=== PATIENT | female | born 1985 | race Caucasian/White ===

== ENCOUNTER 2017-08-17 12:47 | Emergency (ER) | payer SELFPAY ==
[2017-08-17 14:39] LABS: Absolute Lymphocytes (CBC) 2.3 K/uL (0.7-4.9); Absolute Monocytes 0.6 K/uL (0.1-1.3); Absolute Neutrophil 4.6 K/uL (1.8-8.0); Basophils % 0.6 % (0-1.3); Eosinophils % 2.4 % (0-4.4); Hematocrit 41.3 % (36.0-45.0); Lymphocytes % 29.5 % (15.3-44.8); MCV 87.7 fL (80-100); MPV 8.6 fL (7.6-11.3); Monocytes % 8.2 % (3.3-12.3); RBC Red Blood Cell Count 4.71 M/uL (3.86-4.86)
[2017-08-17 14:46] LABS: Potassium 3.7 mEq/L (3.6-5.0)
[2017-08-17 14:52] LABS: Albumin 4.3 g/dL (3.2-5.5); Bilirubin Direct 0.1 mg/dL (0-0.2); Bilirubin Total 0.6 mg/dL (0.3-1.2)
[2017-08-17] MEDS ORDERED: MEPERIDINE HCL 25 MG/0.5 ML ONE (15:59)
[2017-08-17] MEDS ORDERED: PROMETHAZINE 25 MG/ML VIAL ONE (15:59)
[2017-08-17 16:01] LABS: Urine Blood NEGATIVE (NEG); Urine Glucose NEGATIVE (NEG); Urine Protein 1+ (NEG); Urine Specific Gravity 1.025 (1.005-1.030)
--- NOTE | 2017-08-17 16:13 | RAD REPORT ---
EXAM DESCRIPTION: CT - Abdomen Pelvis W Contrast - 08/17/2017 3:53 pm CLINICAL HISTORY: Abdominal pain with vomiting and diarrhea for 3 days COMPARISON: 2007 TECHNIQUE: Computed axial tomography of the abdomen pelvis was obtained. 100 cc Isovue-300 was admin istered intravenously. Oral contrast was not requested which limits evaluation of bowel. All CT scans are performed using dose optimization technique as appropriate and may include automated exposure control or mA/KV adjustment according to patient size. FINDINGS: The liver, spleen, pancreas, adrenal and kidneys appear unremarkable. There is no evidence of diverticulitis. A thickened appendix is not seen. The gallbladder has been re moved Tubal occlusion coils are seen. A 2 centimeter irregularly shaped right ovarian cyst is present with a small amount of free fluid IMPRESSION: A 2 centimeter irregularly shaped right ovarian cyst is present with a small amount of f ree fluid likely has recently ruptured
--- NOTE | 2017-08-17 16:26 | EDPHYS ---
Physician Documentation [facility] Name: Anayeli Fernandez Age: 32 yrs Sex: Female : 1985 Arrival Date: 08/17/2017 Time: 12:50 Bed 5 Private MD: None, None ED Physician Andrea Land HPI: 08/17 15:53 This 32 yrs old Female presents to ER via Ambulatory with complaints of jr8 Vomiting/Diarrhea. 15:53 The patient presents to the emergency department with nausea, vomiting, diarrhea, jr8 abdominal pain, of the epigastric area. Onset: The symptoms/episode began/occurred gradually, 3 week(s) ago, and became worse and became persistent. Possible causes: unknown. The symptoms are aggravated by nothing. The symptoms are alleviated by nothing. Associated signs and symptoms: The patient has no apparent associated signs or symptoms. Severity of symptoms: At their worst the symptoms were moderate in the emergency department the symptoms are unchanged. The patient has not experienced similar symptoms in the past. The patient has not recently seen a physician. 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 - Social history:: Smoking status: Patient uses tobacco products, smokes one pack cigarettes per day. - Ebola Screening: : Patient denies travel to an Ebola-affected area in the 21 days before illness onset. ROS: 15:53 Eyes: Negative for injury, pain, redness, and discharge, ENT: Negative for injury, jr8 pain, and discharge, Neck: Negative for injury, pain, and swelling, Cardiovascular: Negative for chest pain, palpitations, and edema, Respiratory: Negative for shortness of breath, cough, wheezing, and pleuritic chest pain, Back: Negative for injury and pain, MS/Extremity: Negative for injury and deformity, Skin: Negative for injury, rash, and discoloration, Neuro: Negative for headache, weakness, numbness, tingling, and seizure. 15:53 Abdomen/GI: Positive for abdominal pain, nausea, vomiting, and diarrhea, Negative for abdominal cramps, abdominal distension, anorexia, dysphagia, hematemesis, black/tarry stool, rectal pain, rectal bleeding, bowel incontinence, flatulence. Exam: 15:53 Eyes: Pupils equal round and reactive to light, extra-ocular motions intact. Lids and jr8 lashes normal. Conjunctiva and sclera are non-icteric and not injected. Cornea within normal limits. Periorbital areas with no swelling, redness, or edema. ENT: Nares patent. No nasal discharge, no septal abnormalities noted. Tympanic membranes are normal and external auditory canals are clear. Oropharynx with no redness, swelling, or masses, exudates, or evidence of obstruction, uvula midline. Mucous membranes moist. Neck: Trachea midline, no thyromegaly or masses palpated, and no cervical lymphadenopathy. Supple, full range of motion without nuchal rigidity, or vertebral point tenderness. No Meningismus. Cardiovascular: Regular rate and rhythm with a normal S1 and S2. No gallops, murmurs, or rubs. Normal PMI, no JVD. No pulse deficits. Respiratory: Lungs have equal breath sounds bilaterally, clear to auscultation and percussion. No rales, rhonchi or wheezes noted. No increased work of breathing, no retractions or nasal flaring. Back: No spinal tenderness. No costovertebral tenderness. Full range of motion. Skin: Warm, dry with normal turgor. Normal color with no rashes, no lesions, and no evidence of cellulitis. MS/ Extremity: Pulses equal, no cyanosis. Neurovascular intact. Full, normal range of motion. Neuro: Awake and alert, GCS 15, oriented to person, place, time, and situation. Cranial nerves II-XII grossly intact. Motor strength 5/5 in all extremities. Sensory grossly intact. Cerebellar exam normal. Normal gait. 15:53 Abdomen/GI: Inspection: abdomen appears normal, Bowel sounds: active, all quadrants, Palpation: soft, in all quadrants, mild abdominal tenderness, in the epigastric area and left upper quadrant, mass, is not appreciated, rebound tenderness, is not appreciated, voluntary guarding, is not appreciated, involuntary guarding, is not appreciated, no appreciated organomegaly, Indicators: McBurney's point is not tender, Lima's sign is negative, Rovsing's sign is negative, Liver: no appreciated palpable abnormalities, tenderness, is not appreciated. Vital Signs: 13:33 BP 127 / 102; Pulse 80; Resp 18; Temp 98.3; Pulse Ox 97% on R/A; Weight 95.25 kg (R); aj1 Height 5 ft. 5 in. (165.10 cm) (R); Pain 6/10; 14:15 BP 139 / 98; Pulse 75; Resp 17; Pulse Ox 98% on R/A; tw2 15:10 BP 132 / 91; Pulse 71; Resp 17; Pulse Ox 98% on R/A; tw2 16:03 BP 155 / 110; Pulse 64; Resp 17; Pulse Ox 98% on R/A; tw2 16:34 BP 152 / 95; Pulse 90; Resp 18; Pulse Ox 99% on R/A; tw2 13:33 Body Mass Index 34.95 (95.25 kg, 165.10 cm) aj1 MDM: 14:13 Patient medically screened. jr8 16:23 Differential diagnosis: Nonspecific abd pain, gastritis, pancreatitis, diverticulitis, jr8 peptic ulcer, duodenal ulcer. Data reviewed: vital signs, nurses notes, lab test result(s), radiologic studies, CT scan, and as a result, I will discharge patient. Data interpreted: Pulse oximetry: on room air is 98 %. Interpretation: normal. Counseling: I had a detailed discussion with the patient and/or guardian regarding: the historical points, exam findings, and any diagnostic results supporting the discharge/admit diagnosis, lab results, radiology results, the need for outpatient follow up, a crap shooter, to return to the emergency department if symptoms worsen or persist or if there are any questions or concerns that arise at home. Special discussion: Based on the patient's Hx, exam, and Dx evaluation, there is no indication for emergent surgery or inpatient Tx. It is understood by the patient/guardian that if the Sx's persist or worsen they need to return immediately for re-evaluation. 08/17 14:13 Order name: Basic Metabolic Panel; Complete Time: 15:21 8 08/17 14:13 Order name: CBC with Diff; Complete Time: 15:21 8 08/17 14:13 Order name: Creatinine for Radiology; Complete Time: 15:21 08/17 14:13 Order name: Hepatic Function; Complete Time: 15:08/17 14:13 Order name: Lipase; Complete Time: 15: 08/17 14:32 Order name: Urine Dipstick--Ancillary (enter results); Complete Time: 16:03 5 08/17 14:13 Order name: Urine Test (obtain specimen); Complete Time: 15:04 08/17 14:13 Order name: IV Saline Lock; Complete Time: 14:26 08/17 14:13 Order name: Labs collected and sent; Complete Time: 14:26 08/17 14:13 Order name: Urine Dipstick-Ancillary (obtain specimen); Complete Time: 15: 08/17 15:21 Order name: CT Abd/Pelvis - W/Contrast; Complete Time: 16:23 Administered Medications: 16:00 Drug: Phenergan 12.5 mg Route: IVP; Site: right antecubital; tw2 16:27 Follow up: Response: No adverse reaction; Nausea is decreased tw2 16:03 Drug: Demerol 25 mg Route: IVP; Site: right antecubital; tw2 16:27 Follow up: Response: No adverse reaction; Pain is decreased tw2 Disposition: 17:10 Co-signature as Attending Physician, Andrea Land MD. rn Disposition: 08/17/17 16:25 Discharged to Home. Impression: Upper abdominal pain, unspecified. - Condition is Stable. - Discharge Instructions: Abdominal Pain, Adult, Gastritis, Adult. - Prescriptions for Zofran 4 mg Oral Tablet - take 1 tablet by ORAL route every 12 hours As needed; 20 tablet. - Medication Reconciliation Form, Thank You Letter, Antibiotic Education, Prescription Opioid Use, Work release form, Family Work Release form. - Follow up: Jaja Burgos MD; When: 2 - 3 days; Reason: Recheck today's complaints, Continuance of care, Re-evaluation by your physician. - Problem is new. - Symptoms have improved. - Notes: Advised to take 20mg of omeprazole, once in the morning and once at night Signatures: Dispatcher [employer] EDKS Yue Oliveira RN RN aj1 Andrea Land MD MD rn Roszak, Josh, PA PA jr8 Raya Murrieta, RN RN tw2 Corrections: (The following items were deleted from the chart) 16:35 16:25 08/17/2017 16:25 Discharged to Home. Impression: Upper abdominal pain, tw2 unspecified. Condition is Stable. Forms are Medication Reconciliation Form, Thank You Letter, Antibiotic Education, Prescription Opioid Use. Follow up: Jaja Burgos; When: 2 - 3 days; Reason: Recheck today's complaints, Continuance of care, Re-evaluation by your physician. Problem is new. Symptoms have improved. jr8
--- NOTE | 2017-08-17 16:26 | ER ---
Nurse's Notes [facility] Name: Anayeli Fernandez Age: 32 yrs Sex: Female : 1985 Arrival Date: 08/17/2017 Time: 12:50 Bed 5 Private MD: None, None Diagnosis: Upper abdominal pain, unspecified Presentation: 08/17 13:29 Presenting complaint: Patient states: "I've been throwing up and having diarrhea for aj1 the past 3 days." Reports epigastric pain,chills. denies fever. Transition of care: patient was not received from another setting of care. Onset of symptoms was August 14, 2017. Risk Assessment: Do you want to hurt yourself or someone else? Patient reports no desire to harm self or others. Initial Sepsis Screen: Does the patient meet any 2 criteria? No. Patient's initial sepsis screen is negative. Does the patient have a suspected source of infection? No. Patient's initial sepsis screen is negative. Care prior to arrival: None. 13:29 Method Of Arrival: Ambulatory aj1 13:29 Acuity: AZALEA 3 aj1 Triage Assessment: 13:33 General: Appears in no apparent distress. uncomfortable, Behavior is calm, cooperative, aj1 appropriate for age. Pain: Complains of pain in epigastric area Pain does not radiate. Pain currently is 6 out of 10 on a pain scale. at worst was 10 out of 10 on a pain scale. Quality of pain is described as "like someone was stomping on my stomach" Pain began 2-3 days ago. Is continuous, Alleviated by nothing. Aggravated by nothing. GI: Reports diarrhea, nausea, vomiting. 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 - Social history:: Smoking status: Patient uses tobacco products, smokes one pack cigarettes per day. - Ebola Screening: : Patient denies travel to an Ebola-affected area in the 21 days before illness onset. Screenin:17 Abuse screen: Denies threats or abuse. Denies injuries from another. Nutritional jl7 screening: Has had N/V for 3 or more days Intervention for positive screen: ED Physician notified. Tuberculosis screening: No symptoms or risk factors identified. Fall Risk IV access (20 points). Total Pillai Fall Scale indicates No Risk (0-24 pts). Assessment: 14:17 General: Appears in no apparent distress. uncomfortable, Behavior is calm, cooperative. jl7 Pain: Complains of pain in epigastric area Pain does not radiate. Pain currently is 6 out of 10 on a pain scale. Quality of pain is described as "Like someone's kicking me in the stomach." Pain began 2-3 days ago. Is continuous, Alleviated by nothing. Aggravated by repositioning. Neuro: Level of Consciousness is awake, alert, obeys commands, Oriented to person, place, time, situation. Cardiovascular: Patient's skin is warm and dry. Respiratory: Airway is patent Respiratory effort is even, unlabored, Respiratory pattern is regular, symmetrical. GI: Abdomen is round non-distended, Stools are reported to be diarrhea. Last BM was August 17, 2017. Bowel sounds present X 4 quads. : No signs and/or symptoms were reported regarding the genitourinary system. EENT: No signs and/or symptoms were reported regarding the EENT system. Derm: Skin is pink, warm \\T\\ dry. Musculoskeletal: No signs and/or symptoms reported regarding the musculoskeletal system. 15:11 Reassessment: Patient appears in no apparent distress at this time. No changes from tw2 previously documented assessment. Patient and/or family updated on plan of care and expected duration. Pain level reassessed. Patient is alert, oriented x 3, equal unlabored respirations, skin warm/dry/pink. 16:04 Reassessment: Patient appears in no apparent distress at this time. No changes from tw2 previously documented assessment. Patient and/or family updated on plan of care and expected duration. Pain level reassessed. Patient is alert, oriented x 3, equal unlabored respirations, skin warm/dry/pink. 16:34 Reassessment: Patient appears in no apparent distress at this time. Patient and/or tw2 family updated on plan of care and expected duration. Pain level reassessed. Patient is alert, oriented x 3, equal unlabored respirations, skin warm/dry/pink. Patient states feeling better. Vital Signs: 13:33 BP 127 / 102; Pulse 80; Resp 18; Temp 98.3; Pulse Ox 97% on R/A; Weight 95.25 kg (R); aj1 Height 5 ft. 5 in. (165.10 cm) (R); Pain 6/10; 14:15 BP 139 / 98; Pulse 75; Resp 17; Pulse Ox 98% on R/A; tw2 15:10 BP 132 / 91; Pulse 71; Resp 17; Pulse Ox 98% on R/A; tw2 16:03 BP 155 / 110; Pulse 64; Resp 17; Pulse Ox 98% on R/A; tw2 16:34 BP 152 / 95; Pulse 90; Resp 18; Pulse Ox 99% on R/A; tw2 13:33 Body Mass Index 34.95 (95.25 kg, 165.10 cm) aj1 ED Course: 12:50 Patient arrived in ED. mr 12:51 None, None is Private Physician. mr 13:32 Triage completed. aj1 13:33 Arm band placed on Patient placed in waiting room, Patient notified of wait time. aj1 14:12 Dustin Arthur PA is PHCP. jr8 14:13 Andrea Land MD is Attending Physician. jr8 14:16 Milo Sanchez, AYAD is Primary Nurse. jl7 14:17 Patient has correct armband on for positive identification. Placed in gown. Bed in low jl7 position. Call light in reach. Side rails up X 1. Pulse ox on. NIBP on. 14:20 No provider procedures requiring assistance completed. Inserted saline lock: 22 gauge tw2 in right antecubital area, using aseptic technique. Blood collected. 15:40 CT completed. Patient tolerated procedure well. Patient moved to CT. jj2 15:[address] nj 15:52 CT completed. Patient tolerated procedure well. nj 15:[address]. nj 15:53 CT Abd/Pelvis - W/Contrast In Process Unspecified. EDMS 16:25 Jaja Burgos MD is Referral Physician. jr8 16:34 IV discontinued, intact, bleeding controlled, No redness/swelling at site. Pressure tw2 dressing applied. Administered Medications: 16:00 Drug: Phenergan 12.5 mg Route: IVP; Site: right antecubital; tw2 16:27 Follow up: Response: No adverse reaction; Nausea is decreased tw2 16:03 Drug: Demerol 25 mg Route: IVP; Site: right antecubital; tw2 16:27 Follow up: Response: No adverse reaction; Pain is decreased tw2 Outcome: 16:25 Discharge ordered by . brandi 16:34 Discharged to home ambulatory, with friend. tw2 16:34 Condition: stable 16:34 Discharge instructions given to patient, friend, Instructed on discharge instructions, follow up and referral plans. medication usage, Demonstrated understanding of instructions, follow-up care, medications, Prescriptions given X 1. 16:35 Patient left the ED. tw2 Signatures: Dispatcher [employer] EDMS Yue Oliveira, RN RN aj1 Keesha Burk mr Adela, Dustin Brooks PA PA jr8 aRya Murrieta RN RN tw2 Tito Moreno Jahala, RN RN jl7
[2017-08-17 16:43] VITALS: TEMP 98.3
[2017-08-17 16:48] VITALS: BP 152/95; O2SAT 99
== END 2017-08-17 16:35 | disposition home or self-care (01) ==
LOC: ER 12:47
DX: R10.13 Epigastric pain (principal); F17.210 Nicotine dependence, cigarettes, uncomplicated; Z88.8 Allergy status to other drugs, medicaments and biological substances; Z91.040 Latex allergy status
CPT/HCPCS: 36415; 74177; 80048; 80076; 81003; 83690; 85025; 96374; 96375; 99284; J2175; J2550; Q9967

== ENCOUNTER 2020-09-20 16:20 | Emergency (ER) | payer SELFPAY ==
--- OUTSIDE RECORDS SUMMARY | 2020-09-20 16:23 | XMS REPORT | Continuity of Care Document ---
:1985 Author Organization [facility] t Address [address] [place] [address] Dr. Maloney [address] [place] [id number] Care Team Providers Name Role Phone George Dyer Attending Clinician [phone] Problems This patient has no known problems. Allergies, Adverse Reactions, Alerts This patient has no known allergies or adverse reactions. Medications This patient has no known medications. Procedures This patient has no known procedures. Encounters Start End Encounter Admission Attending Care Care Encounter Source Date/Time Date/Time Type Type Clinicians Facility Department ID 2020-08-21 2020-08-21 Outpatient SUNNY Dyer [facility] [id number] 00:00:00 00:00:00 Vignesh [id number] George [id number] Results This patient has no known results.
[2020-09-20] MEDS ORDERED: PROMETHAZINE INJ 25 MG/ML AMP ONE (17:15)
[2020-09-20] MEDS ORDERED: MEPERIDINE HCL 50 MG/ML ONE (17:15)
[2020-09-20] MEDS ORDERED: NA CHLORIDE 0.9% 1,000 ML ONE (17:15)
[2020-09-20] MEDS ORDERED: dexAMETHasone 10 MG/ML VIAL ONE (17:15)
--- NOTE | 2020-09-20 18:19 | ER ---
Nurse's Notes [facility] Name: Anayeli Fernandez Age: 35 yrs Sex: Female : 1985 Arrival Date: 09/20/2020 Time: 16:22 Bed 6 Private MD: Diagnosis: Migraine, unspecified, not intractable, without status migrainosus Presentation: 09/20 16:34 Chief complaint: Patient states: Migraine BARROW for 4 days. + N/V/D. Coronavirus screen: ll1 Client denies travel out of the [place] in the last 14 days. At this time, the client does not indicate any symptoms associated with coronavirus-19. Ebola Screen: Patient denies travel to an Ebola-affected area in the 21 days before illness onset. Initial Sepsis Screen: Does the patient meet any 2 criteria? No. Patient's initial sepsis screen is negative. Does the patient have a suspected source of infection? Yes: S/S of meningitis or endocarditis. Risk Assessment: Do you want to hurt yourself or someone else? Patient reports no desire to harm self or others. Onset of symptoms was September 17, 2020. 16:34 Method Of Arrival: Ambulatory ll1 16:34 Acuity: AZALEA 3 ll1 Historical: - Allergies: 16:34 ketorolac tromethamine; ll1 16:34 Latex, Natural Rubber; ll1 16:34 SUMATRIPTAN; ll1 - PMHx: 16:34 Asthma; GERD; Migraines; ll1 - PSHx: 16:34 section; Cholecystectomy; ll1 - Immunization history:: Client reports having NOT received the Covid vaccine. Flu vaccine is not up to date. - Social history:: Smoking status: Patient denies any tobacco usage or history of. - Family history:: not pertinent. - Hospitalizations: : No recent hospitalization is reported. Screenin:43 Abuse screen: Denies threats or abuse. Denies injuries from another. Nutritional sv screening: No deficits noted. Tuberculosis screening: No symptoms or risk factors identified. Fall Risk None identified. Assessment: 17:00 General: Appears in no apparent distress. uncomfortable, well developed, Behavior is sv calm, cooperative, appropriate for age. Pain: Complains of pain in forehead Pain currently is 9 out of 10 on a pain scale. Quality of pain is described as throbbing, Pain began 2-3 days ago. Is continuous, Also complains of photophobia. Neuro: Level of Consciousness is awake, alert, obeys commands, Oriented to person, place, time, situation, Moves all extremities. Full function Gait is steady, Speech is normal. Respiratory: Airway is patent Respiratory effort is even, unlabored, Respiratory pattern is regular, symmetrical. Derm: Skin is intact, Skin is pink, warm \T\ dry. Musculoskeletal: Range of motion: intact in all extremities. 18:36 Reassessment: Patient appears in no apparent distress at this time. Patient and/or sv family updated on plan of care and expected duration. Pain level reassessed. Patient is alert, oriented x 3, equal unlabored respirations, skin warm/dry/pink. Patient states symptoms have improved. 18:40 Reassessment: Pt waiting for her transportation home. sv 18:45 Reassessment: Pt's sister here to take her home. sv Vital Signs: 16:34 BP 137 / 94; Pulse 84; Resp 14; Temp 98.4; Pulse Ox 100% ; Weight 81.65 kg; Height 5 ll1 ft. 5 in. (165.10 cm); Pain 9/10; 17:30 BP 141 / 88; Pulse 62; Resp 16; Pulse Ox 99% ; sv 16:34 Body Mass Index 29.95 (81.65 kg, 165.10 cm) ll1 [place] Coma Score: 18:18 Eye Response: spontaneous(4). Verbal Response: oriented(5). Motor Response: obeys rn commands(6). Total: 15. ED Course: 16:22 Patient arrived in ED. ds1 16:34 Arm band placed on. ll1 16:36 Triage completed. ll1 16:43 Nancy Vidal, AYAD is Primary Nurse. sv 16:43 Patient has correct armband on for positive identification. Bed in low position. Call sv light in reach. 16:44 Andrea Land MD is Attending Physician. rn 17:00 Inserted saline lock: 20 gauge in right antecubital area, using aseptic technique. sv Flushed right antecubital with 5 ml normal saline. 18:45 No provider procedures requiring assistance completed. IV discontinued, intact, sv bleeding controlled, No redness/swelling at site. Pressure dressing applied. Administered Medications: 17:00 Drug: Phenergan (promethazine) 12.5 mg Route: IVP; Site: right antecubital; sv 18:39 Follow up: Response: No adverse reaction sv 17:00 Drug: NS 0.9% 1000 ml Route: IV; Rate: 1000 ml; Site: right antecubital; sv 18:20 Follow up: Response: No adverse reaction; IV Status: Completed infusion; IV Intake: sv 1000ml 17:02 Drug: Demerol (meperidine) 50 mg {Note: rass2.} Route: IVP; Site: right antecubital; sv 18:39 Follow up: Response: No adverse reaction; Pain is decreased; RASS: Restless (+1) sv 17:04 Drug: Decadron - Dexamethasone 10 mg Route: IVP; Site: right antecubital; sv 18:39 Follow up: Response: No adverse reaction sv 18:36 Drug: Demerol (meperidine) 25 mg {Note: rass1.} Route: IVP; Site: right antecubital; sv 18:46 Follow up: Response: No adverse reaction; RASS: Alert and Calm (0) sv Intake: 18:20 IV: 1000ml; Total: 1000ml. sv Outcome: 18:19 Discharge ordered by . rn 18:45 Discharged to home ambulatory, with family. sv 18:45 Condition: stable 18:45 Condition: improved 18:45 Discharge instructions given to patient, Instructed on discharge instructions, follow up and referral plans. Demonstrated understanding of instructions, follow-up care. 18:46 Patient left the ED. sv Signatures: Nancy Vidal RN RN sv Sanford, Demi ds1 Andrea Land MD MD rn Lewis, Lynsay, RN RN 1
--- NOTE | 2020-09-20 18:20 | EDPHYS ---
Physician Documentation [facility] Name: Anayeli Fernandez Age: 35 yrs Sex: Female : 1985 Arrival Date: 09/20/2020 Time: 16:22 Bed 6 Private MD: ED Physician Andrea Land HPI: 09/20 17:05 This 35 yrs old Female presents to ER via Ambulatory with complaints of rn Migraine. 17:05 The patient complains of pain to the forehead. The patient describes the headache as rn aching. Onset: The symptoms/episode began/occurred 4 day(s) ago. Associated signs and symptoms: Pertinent positives: nausea, Pertinent negatives: altered mental status, fever, neck stiffness, rash, vision loss, weakness, vertigo. Severity of symptoms: At its worst the pain was moderate, "similar to past headaches", in the emergency department the pain is unchanged. Headache History: The patient has had previous headaches and this one is similar to previous episodes. The symptoms are alleviated by nothing. the symptoms are aggravated by lights, noise. The patient has experienced similar episodes in the past. The patient has not recently seen a physician. Reports 4 days of headache/migraine, identical to migraines in past, has had them for 2 decades, no atypical symptoms for her today, no trauma, no fever. . Historical: - Allergies: 16:34 ketorolac tromethamine; ll1 16:34 Latex, Natural Rubber; ll1 16:34 SUMATRIPTAN; ll1 - PMHx: 16:34 Asthma; GERD; Migraines; ll1 - PSHx: 16:34 section; Cholecystectomy; ll1 - Immunization history:: Client reports having NOT received the Covid vaccine. Flu vaccine is not up to date. - Social history:: Smoking status: Patient denies any tobacco usage or history of. - Family history:: not pertinent. - Hospitalizations: : No recent hospitalization is reported. ROS: 17:05 Constitutional: Negative for fever, chills, and weight loss, Eyes: Negative for injury, rn pain, redness, and discharge, Neck: Negative for injury, pain, and swelling, Cardiovascular: Negative for chest pain, palpitations, and edema, Respiratory: Negative for shortness of breath, cough, wheezing, and pleuritic chest pain, Abdomen/GI: Negative for abdominal pain, nausea, vomiting, diarrhea, and constipation, Back: Negative for injury and pain, : Negative for injury, bleeding, discharge, and swelling, MS/Extremity: Negative for injury and deformity, Skin: Negative for injury, rash, and discoloration, Neuro: Negative for weakness, numbness, tingling, and seizure. Exam: 17:05 Constitutional: This is a well developed, well nourished patient who is awake, alert, rn and in no acute distress. Head/Face: Normocephalic, atraumatic. Eyes: Periorbital areas with no swelling, redness, or edema. Neck: Trachea midline, no masses palpated, and no cervical lymphadenopathy. Supple, full range of motion without nuchal rigidity, or vertebral point tenderness. No Meningismus. Cardiovascular: Regular rate and rhythm. No pulse deficits. Respiratory: No increased work of breathing, no retractions or nasal flaring. Abdomen/GI: Soft, non-tender Skin: Warm, dry with normal turgor. Normal color with no rashes, no lesions, and no evidence of cellulitis. MS/ Extremity: Pulses equal, no cyanosis. Neurovascular intact. Full, normal range of motion. Equal circumference. Neuro: Awake and alert, GCS 15, oriented to person, place, time, and situation. Cranial nerves II-XII grossly intact. Motor strength 5/5 in all extremities. Sensory grossly intact. Cerebellar exam normal. Vital Signs: 16:34 BP 137 / 94; Pulse 84; Resp 14; Temp 98.4; Pulse Ox 100% ; Weight 81.65 kg; Height 5 ll1 ft. 5 in. (165.10 cm); Pain 9/10; 17:30 BP 141 / 88; Pulse 62; Resp 16; Pulse Ox 99% ; sv 16:34 Body Mass Index 29.95 (81.65 kg, 165.10 cm) ll1 Sherwood Coma Score: 18:18 Eye Response: spontaneous(4). Verbal Response: oriented(5). Motor Response: obeys rn commands(6). Total: 15. MDM: 16:44 Patient medically screened. rn 18:18 Differential diagnosis: hypertensive headache, migraine, tension headache, vasomotor rn headache. Data reviewed: vital signs, nurses notes, radiologic studies, CT scan, and as a result, I will discharge patient. Counseling: I had a detailed discussion with the patient and/or guardian regarding: the historical points, exam findings, and any diagnostic results supporting the discharge/admit diagnosis, radiology results, the need for outpatient follow up, to return to the emergency department if symptoms worsen or persist or if there are any questions or concerns that arise at home. Response to treatment: the patient's symptoms have markedly improved after treatment, and as a result, I will discharge patient. Special discussion: I discussed with the patient/guardian in detail that at this point there is no indication for admission to the hospital. It is understood, however, that if the symptoms persist or worsen the patient needs to return immediately for re-evaluation. Based on the history and exam findings, there is no indication for further emergent testing or inpatient evaluation. I discussed with the patient/guardian the need to see the neurologist for further evaluation of the symptoms. 09/20 16:50 Order name: IV Start; Complete Time: 16:59 rn Administered Medications: 17:00 Drug: Phenergan (promethazine) 12.5 mg Route: IVP; Site: right antecubital; sv 18:39 Follow up: Response: No adverse reaction sv 17:00 Drug: NS 0.9% 1000 ml Route: IV; Rate: 1000 ml; Site: right antecubital; sv 18:20 Follow up: Response: No adverse reaction; IV Status: Completed infusion; IV Intake: sv 1000ml 17:02 Drug: Demerol (meperidine) 50 mg {Note: rass2.} Route: IVP; Site: right antecubital; sv 18:39 Follow up: Response: No adverse reaction; Pain is decreased; RASS: Restless (+1) sv 17:04 Drug: Decadron - Dexamethasone 10 mg Route: IVP; Site: right antecubital; sv 18:39 Follow up: Response: No adverse reaction sv 18:36 Drug: Demerol (meperidine) 25 mg {Note: rass1.} Route: IVP; Site: right antecubital; sv 18:46 Follow up: Response: No adverse reaction; RASS: Alert and Calm (0) sv Disposition Summary: 09/20/20 18:19 Discharge Ordered Location: Home rn Problem: new rn Symptoms: have improved rn Condition: Stable rn Diagnosis - Migraine, unspecified, not intractable, without status migrainosus rn Followup: rn - With: Private Physician - When: As needed - Reason: Recheck today's complaints, Re-evaluation by your physician Discharge Instructions: - Discharge Summary Sheet rn - Migraine Headache rn - Recurrent Migraine Headache rn Forms: - Medication Reconciliation Form rn - Thank You Letter rn - Antibiotic rn case management - Prescription Opioid Use rn - Work release form eb Signatures: Nancy Vidal RN RN sv Nieto, Roman, MD MD rn Lewis, Lynsay, RN RN ll1
[2020-09-20 18:54] VITALS: TEMP 98.4
[2020-09-20] MEDS ORDERED: MEPERIDINE HCL 25 MG/ML SYR ONE (18:55)
[2020-09-20 18:56] VITALS: BP 141/88; O2SAT 99
== END 2020-09-20 18:46 | disposition home or self-care (01) ==
LOC: ER 16:20
DX: G43.909 Migraine, unspecified, not intractable, without status migrainosus (principal); Z88.8 Allergy status to other drugs, medicaments and biological substances; Z91.048 Other nonmedicinal substance allergy status
CPT/HCPCS: 96361; 96374; 96375; 99283; J1100; J2175; J2550; J7030

== ENCOUNTER 2021-01-06 12:38 | Emergency (ER) | payer SELFPAY ==
[2021-01-06] MEDS ORDERED: ONDANSETRON 4 MG (ODT) TAB ONE (13:30)
[2021-01-06] MEDS ORDERED: HYDROCODONE/APAP 10/325 TAB ONE (13:30)
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
[2021-01-06 15:58] VITALS: BP 147/103; TEMP 97.2; O2SAT 100
== END 2021-01-06 15:48 | disposition home or self-care (01) ==
LOC: ER 12:38
DX: S09.90XA Unspecified injury of head, initial encounter (principal); S40.022A Contusion of left upper arm, initial encounter; S40.021A Contusion of right upper arm, initial encounter; Y04.8XXA Assault by other bodily force, initial encounter; F17.210 Nicotine dependence, cigarettes, uncomplicated; Z88.8 Allergy status to other drugs, medicaments and biological substances; Z91.040 Latex allergy status; Z91.048 Other nonmedicinal substance allergy status
CPT/HCPCS: 70450; 72125; 99283